=== PATIENT | female | born 1960 | race Caucasian/White ===

== ENCOUNTER → 2020-10-13 | Outpatient (CLI) | payer BC ==
[~2020-10-13] MED LIST: CEPH500 PO
== END | disposition home or self-care (01) ==
LOC: LAB 11:47 → LAB SHORT 11:47
DX: D48.5 Neoplasm of uncertain behavior of skin (principal); L82.1 Other seborrheic keratosis
CPT/HCPCS: 88305

== ENCOUNTER → 2023-01-30 | Outpatient (CLI) | payer OTHER ==
[2023-02-01 15:11] LABS: HPV 16 Negative (Negative); HPV 18 Negative (Negative); HPV OTHER HR TYPES Negative (Negative)
== END | disposition home or self-care (01) ==
LOC: LAB 11:31 → LAB SHORT 11:31
PROVIDERS: Registered Nurse Community Health
DX: Z12.4 Encounter for screening for malignant neoplasm of cervix (principal)
CPT/HCPCS: 87624; G0145

== ENCOUNTER 2023-02-12 11:40 | Inpatient (IN) | payer OTHER ==
[~2023-02-12] VITALS: Ht 160 cm; Wt 79.2 kg
[2023-02-12 12:45] LABS: BASOPHILS ABSOLUTE AUTO 0.08 K/mm3 (0.00-0.23); BASOPHILS PERCENT AUTO 0 % (0-2); EOSINOPHILS ABSOLUTE AUTO 0.01 K/mm3 (0.00-0.68); EOSINOPHILS PERCENT AUTO 0 % (0-6); Hematocrit 43.6 % (33.0-51.0); Hemoglobin 14.5 g/dL (11.5-16.0); IMMATURE GRAN ABSOLUTE AUTO 0.15 K/mm3 (0.00-0.10); IMMATURE GRAN PERCENT AUTO 1 % (0-1); LYMPHOCYTES ABSOLUTE AUTO 2.12 K/mm3 (0.84-5.20); LYMPHOCYTES PERCENT AUTO 10 % (21-46); MONOCYTES ABSOLUTE AUTO 1.48 K/mm3 (0.16-1.47); MONOCYTES PERCENT AUTO 7 % (4-13); Mean Corpuscular HGB 30.8 pg (26.0-34.0); Mean Corpuscular HGB Conc 33.3 g/dL (31.5-36.5); Mean Corpuscular Volume 93 fL (80-100); Mean Platelet Volume 10.6 fL (9.1-12.4); NEUTROPHILS ABSOLUTE AUTO 17.98 K/mm3 (1.96-9.15); NEUTROPHILS PERCENT AUTO 82 % (41-73); Platelet Count 235 K/mm3 (150-400); RDW Coefficient Variation 12.3 % (11.7-14.2); RDW Standard Deviation 42.2 fL (35.1-46.3); Red Blood Cell Count 4.71 M/mm3 (3.80-5.20); White Blood Cell Count 21.82 K/mm3 (4.00-11.30)
[2023-02-12 13:06] LABS: Albumin, Blood 3.4 g/dL (3.4-5.0); Albumin/Globulin Ratio 0.7 (0.8-1.8); Bilirubin, Total 1.2 mg/dL (0.1-1.0); Bun/Creatinine Ratio 13.3 (12.0-20.0); Calcium, Blood 9.2 mg/dL (8.5-10.1); Creatinine, Blood 0.98 mg/dL (0.40-1.00); Globulin, Blood 4.9 g/dL (2.2-4.0); Potassium, Blood 3.6 mmol/L (3.5-5.5); Total Protein, Blood 8.3 g/dL (6.4-8.2)
[2023-02-12 15:56] LABS: Source, Urine Clean Catch
[2023-02-12 16:03] LABS: Appearance, Urine Cloudy (Clear); Blood, Urine 2+ (Neg); Color, Urine Amber (P-Yellow); Glucose Qualitative, Urine 1+ (Neg); Ketones, Urine 1+ (Neg); Leukocyte Esterase, Urine 1+ (Neg); Nitrite, Urine Neg (Neg); Protein, Urine 2+ (Neg); Urobilinogen, Urine 2+ (Normal)
[2023-02-12 16:13] LABS: Bilirubin, Urine 2+ (Neg)
[2023-02-12 16:15] LABS: Bacteria Many /hpf; Mucus Light (0-Heavy); Squamous Epithelial Cells Many /hpf (Few); White Blood Cells, Urine 25-50 /hpf (0-5)
[2023-02-12 17:36] LABS: Influenza A, PCR NEGATIVE (NEGATIVE); Influenza B, PCR NEGATIVE (NEGATIVE); Resp Syncytial Virus, PCR NEGATIVE (NEGATIVE); SARS-Cov-2 (COVID-19) PCR, MMC NEGATIVE (NEGATIVE)
[2023-02-12 22:09] VITALS: BP 156/73
[2023-02-13] VITALS (16 sets, daily range): BP systolic 115–180; BP diastolic 59–79
--- NOTE | 2023-02-13 05:08 | NUR ---
SUMMARY PT ARRIVED TO ROOM WITH N/V. PT TREATED PER JUN WITH RELIEF. PT DISCOMFORT REPONDED WELL TO TX. PT HAS BEEEN NPO SINCE 399. PT HAS BEEN ABLE TO SLEEP OFF AND ON. PT IS VOIDING WELL. PT CURRENTLY SLEEPING IN NO DISTRESS. CALL LIGHT IN REACH.
[2023-02-13 06:40] LABS: BASOPHILS ABSOLUTE AUTO 0.04 K/mm3 (0.00-0.23); BASOPHILS PERCENT AUTO 0 % (0-2); EOSINOPHILS ABSOLUTE AUTO 0.09 K/mm3 (0.00-0.68); EOSINOPHILS PERCENT AUTO 0 % (0-6); Hematocrit 36.6 % (33.0-51.0); Hemoglobin 12.6 g/dL (11.5-16.0); IMMATURE GRAN ABSOLUTE AUTO 0.45 K/mm3 (0.00-0.10); IMMATURE GRAN PERCENT AUTO 2 % (0-1); LYMPHOCYTES ABSOLUTE AUTO 1.25 K/mm3 (0.84-5.20); LYMPHOCYTES PERCENT AUTO 6 % (21-46); MONOCYTES ABSOLUTE AUTO 0.62 K/mm3 (0.16-1.47); MONOCYTES PERCENT AUTO 3 % (4-13); Mean Corpuscular HGB 30.7 pg (26.0-34.0); Mean Corpuscular HGB Conc 34.4 g/dL (31.5-36.5); Mean Corpuscular Volume 89 fL (80-100); Mean Platelet Volume 10.7 fL (9.1-12.4); NEUTROPHILS ABSOLUTE AUTO 19.68 K/mm3 (1.96-9.15); NEUTROPHILS PERCENT AUTO 89 % (41-73); Platelet Count 205 K/mm3 (150-400); RDW Coefficient Variation 12.5 % (11.7-14.2); RDW Standard Deviation 41.1 fL (35.1-46.3); White Blood Cell Count 22.13 K/mm3 (4.00-11.30)
[2023-02-13 07:10] LABS: Bun/Creatinine Ratio 16.2 (12.0-20.0); Calcium, Blood 8.3 mg/dL (8.5-10.1); Creatinine, Blood 0.68 mg/dL (0.40-1.00); Potassium, Blood 3.5 mmol/L (3.5-5.5)
--- NOTE | 2023-02-13 12:27 | NUR ---
PT TAKEN TO DAY SURGERY.
--- NOTE | 2023-02-13 12:44 | NUR ---
PT TO DAY SURGERY FROM ROOM 211 FOR LAPAROSCOPIC APPENDECTOMY. PT HAS SOME SHARP PAINS IN HER LOWER RIGHT QUADRANT; PAIN 8/10. PLAN OF CARE DISCUSSED.
--- NOTE | 2023-02-13 16:00 | NUR ---
S/P LAP APPY BY DR. AVITIA, AWAKE, A&OX4, STANDBY ASSIST TO TRANSFER TO BED, DENIES ANY NEED FOR PAIN MEDS AT THIS TIME, DENIES ANY NAUSEA, LUNGS COARSE, DENIES ANY SOB, NONPRODUCTIVE COUGH NOTED T/O, HRR, ABD SOFT, LAP. INCISIONS W/ SKIN GLUE C/D/I, ACTIVE BT'S X4, INCENTIVE SPIROMETER GIVEN W/ INSTRUCTIONS, MONITOR VS AND ANY CHANGES.
--- NOTE | 2023-02-13 17:54 | NUR ---
SUMMARY S/P LAP APPY BY DR. AVITIA, PT DOING WELL POST OP, VSS, RATES PAIN AT 1/10, DENIES ANY NAUSEA, TOLERATED REG DIET WELL, VOIDING WITHOUT DIFFICULTY, CONT. TO ENCOURAGE IS USE, AMBULATED IN THE HALLS, NO ACUTE CHANGES THIS SHIFT.
[2023-02-14 02:54] VITALS: BP 121/62
[2023-02-14 07:23] VITALS: BP 142/76
--- NOTE | 2023-02-14 07:38 | NUR ---
POD 1 S/P LAP APPY. PT VSS T/O NIGHT. INCISIONS CDI. PAIN MGD W/1 NORCO W/REP RELIEF. PT RAFAEL CL PO, DENIED N/V, REP NOT PASSING FLATUS YET. PT AMB INEP IN ROOM, RAFAEL WELL.
[2023-02-14 14:02] VITALS: BP 132/67
[2023-02-14 19:22] VITALS: BP 142/70
--- NOTE | 2023-02-14 19:43 | NUR ---
SHIFT SUMMARY PT POD 1 LAP APPY/PERF. LAP SITES X'S 3 D/I. PT HAD 2 EPISODES OF EMESIS BEGINING OF SHIFT, MEDICATED TOTAL A8MG ZOFRAN WITH NO RELIEF. REGLAN PER EMAR AND EMESIS RESOLVED. PT DENIES FLATUS THIS SHIFT. MEDICATED ONCE FOR PAIN, REPORTS PAIN HAS BEEN TOLERABLE. PT ENCOURAGED AND EDUCATED ON THE NEED TO AMBULATE, VERBALIZED UNDERSTADING. VOIDING W/O DIFFICULTY. CONTINUE PO ABX, POS DC HOME TOMORROW.
[2023-02-15 04:53] VITALS: BP 158/81
[2023-02-15 07:14] VITALS: BP 180/84
--- NOTE | 2023-02-15 07:34 | NUR ---
POD 2 S/P LAP APPY. PT VSS T/O NIGHT. INCISIONS CDI. PAIN MGD PER EMAR W/REP RELIEF. PT RAFAEL SM AMT PO, REP PASSING SMALL AMT FLATUS THIS AM. PT AMB INDEP IN HALLS, RAFAEL WELL. ABX CONT PER ORDERS.
[2023-02-15] MEDS ORDERED: Norco 5-325 Ta1 EACH PO (12:27)
[2023-02-15] MEDS ORDERED: VISBIOME 112.51 EACH PO (12:27)
[2023-02-15] MEDS ORDERED: AMOCLA875 PO (12:28)
--- NOTE | 2023-02-15 13:04 | NUR ---
DISCHARGE PT DISCHARGED HOME FROM UNIT AT APROX 1308. PT GIVEN WRITTEN AND VERBAL DC INSTRUCTIONS AND VERBALIZED UNDERSTANDING OF THESE INSTRUCTIONS. IV REMOVED. NEW RX'S FAXED TO [facility]
== END 2023-02-15 13:08 | disposition home or self-care (01) | DRG 853 ==
LOC: ER 11:40 → SURS 21:00
PROVIDERS: Emergency Medicine; Physician Assistant; Student in an Organized Health Care Education/Training Program; Surgery; ADMIT Internal Medicine
PROC: 0W9J4ZZ Drainage of Pelvic Cavity, Percutaneous Endoscopic Approach (ICD-10-PCS; 2023-02-13)
PROC: 3E03329 Introduction of Other Anti-infective into Peripheral Vein, Percutaneous Approach (ICD-10-PCS; 2023-02-13)
PROC: 0DTJ4ZZ Resection of Appendix, Percutaneous Endoscopic Approach (ICD-10-PCS; principal; 2023-02-13 13:00)
DX: A41.9 Sepsis, unspecified organism (principal); K35.33 Acute appendicitis with perforation, localized peritonitis, and gangrene, with abscess; J44.1 Chronic obstructive pulmonary disease with (acute) exacerbation; J45.901 Unspecified asthma with (acute) exacerbation; K52.9 Noninfective gastroenteritis and colitis, unspecified; E78.00 Pure hypercholesterolemia, unspecified; E66.9 Obesity, unspecified; K66.0 Peritoneal adhesions (postprocedural) (postinfection); Z98.890 Other specified postprocedural states; Z98.51 Tubal ligation status; Z88.5 Allergy status to narcotic agent; Z87.891 Personal history of nicotine dependence; Z11.52 Encounter for screening for COVID-19; Z68.30 Body mass index [BMI] 30.0-30.9, adult
CPT/HCPCS: 0241U; 36415; 71046; 74177; 80048; 80053; 81001; 83605; 83690; 85025; 87040; 87086; 88304; 93005; 93010; 94640; 94664; 94760; 94762; 96361; 96365-59; 96367; 96375; 96376; 99285-25; A9270; G0378; J0295; J0696; J1100; J1170; J1644; J1885; J2405; J2704; J2765; J2920; J3010; J7030; J7120; Q9967

== ENCOUNTER 2024-10-22 07:39 | Day surgery (SDC) | payer OTHER ==
[~2024-10-22 07:39] MED LIST changes: +AMOCLA875 PO; +Norco 5-325 Ta1 EACH PO; +VISBIOME 112.51 EACH PO
== END 2024-10-22 23:00 | disposition home or self-care (01) ==
LOC: CT 07:39
DX: R94.31 Abnormal electrocardiogram [ECG] [EKG] (principal); R07.9 Chest pain, unspecified
CPT/HCPCS: 75571

== ENCOUNTER 2024-11-17 08:14 | Day surgery (SDC) | payer OTHER ==
[~2024-11-17] VITALS: Ht 160 cm; Wt 89.8 kg
[2024-11-17] VITALS (9 sets, daily range): BP systolic 138–172; BP diastolic 62–83
[~2024-11-17 08:14] MED LIST changes: +ALBU90OI INH; +AMLO5 PO; +ASPI81CH PO; +ATOR20 PO; +CINNAMON-CHROM1 EACH PO; +Isosorbide Mono30 MG PO; +NITR.4SL SL
[2024-11-17] MEDS ORDERED: Verapamil HCL 2.5 MG/ML 2ML Injection ONE (08:53)
[2024-11-17] MEDS ORDERED: Heparin Sodium 1000 Units/ML 10ML MDV ONE ×2 (08:53→10:19)
[2024-11-17] MEDS ORDERED: Nitroglycerin 2 MG/20 ML BTL ONE (08:54)
[2024-11-17] MEDS ORDERED: NS 250 ML IV ONE (08:54)
[2024-11-17] MEDS ORDERED: NS 1,000 ML IV ONE ×2 (08:54→08:58)
[2024-11-17] MEDS ORDERED: Midazolam HCl 1MG / ML 2ML Vial ONE ×2 (08:58→09:55)
[2024-11-17] MEDS ORDERED: FentaNYL Citrate 50 MCG/ML 2 ML Injection ONE (08:58)
[2024-11-17] MEDS ORDERED: HydrALAZINE HCl 20 MG / ML 1ML Vial ONE (09:19)
[2024-11-17] MEDS ORDERED: Ondansetron HCl 2 MG / ML 2ML Vial ONE ×2 (10:25→10:41)
[2024-11-17] MEDS ORDERED: JARDIANCE10 MG PO (11:51)
[2024-11-17] MEDS ORDERED: CLOP75 PO (11:54)
--- NOTE | 2024-11-17 13:39 | NUR ---
ARRIVED EARLIER FROM PROCEDURE, TR BAND IN PLACE, SITE INTACT WITH PULSES PROXIMAL/DISTAL, INTACT, NO SWELLING OR CONCERNS. VSS, GIVEN FOOD/DRINK, RECENTLY BEGAN TAKING AIR OUT OF TR BAND, NOW COMPLETELY DEFLATED. EARLIER DISCUSSED D/C INSTRUCTIONS, MEDICATIONS, FOLLOW UP APPOINTMENT, SITE MANAGEMENT. NO QUESTIONS OR CONCERNS OTHERWISE, D/C PENDING.
--- NOTE | 2024-11-17 14:14 | NUR ---
PT VERBALIZES GOOD UNDERSTANDING OF DISCHARGE INSTRUCTIONS, R RADIAL SITE NO SWELLING/HEMATOMA, WRIST IMMOBILIZER IN PLACE. PT LEFT FACILITY VIA W/C, CONDITIOIN STABLE.
== END 2024-11-17 14:14 | disposition home or self-care (01) ==
LOC: MHTC 08:14
DX: R07.89 Other chest pain (principal); J44.9 Chronic obstructive pulmonary disease, unspecified; I10 Essential (primary) hypertension; E78.5 Hyperlipidemia, unspecified; E03.9 Hypothyroidism, unspecified; Z87.891 Personal history of nicotine dependence; Z88.5 Allergy status to narcotic agent; Z79.899 Other long term (current) drug therapy; Z90.49 Acquired absence of other specified parts of digestive tract
CPT/HCPCS: 76937; 85347; 92978; 93005; 93010; 93458; 93571; 99152; 99153; A9270; C1725; C1753; C1769; C1874; C1887; C1894; C9600; J0360; J1644; J2250; J2405; J3010; J7030; J7050; Q9967